=== PATIENT | male | born 2000 | race Hispanic/Latino ===

== ENCOUNTER 2019-01-24 03:53 | Emergency (ER) | payer OTHER ==
[2019-01-24] MEDS ORDERED: LIDOCAINE HCL 2% VISCOUS 15 ML UDCUP ONE (04:18)
== END 2019-01-24 04:42 | disposition home or self-care (01) ==
LOC: EDH 03:53
DX: S31.21XA Laceration without foreign body of penis, initial encounter (principal); Z72.0 Tobacco use; X58.XXXA Exposure to other specified factors, initial encounter; Y93.89 Activity, other specified; Y92.89 Other specified places as the place of occurrence of the external cause; Y99.8 Other external cause status